=== PATIENT | male | born 1980 | race Caucasian/White ===

== ENCOUNTER 2018-11-29 12:47 | Emergency (ER) | payer OTHER ==
[~2018-11-29] VITALS: Ht 182.9 cm; Wt 79.5 kg
[2018-11-29 12:52] VITALS: BP 121/81
[2018-11-29] MEDS ORDERED: NICO-631 TD (13:05)
== END 2018-11-29 13:22 | disposition home or self-care (01) ==
LOC: ER 12:49 → EDBD 12:49 → ER 13:22
DX: F11.10 Opioid abuse, uncomplicated (principal); F17.200 Nicotine dependence, unspecified, uncomplicated; Z79.899 Other long term (current) drug therapy
CPT/HCPCS: 99282